=== PATIENT | female | born 1955 | race Caucasian/White ===

== ENCOUNTER → 2016-11-22 | Outpatient (REF) | LOC: WSOH 11:07 | DX: Z02.89 Encounter for other administrative examinations (principal) ==

== ENCOUNTER → 2016-12-23 | Outpatient (REF) | LOC: WSOH 17:00 | DX: Z02.89 Encounter for other administrative examinations (principal) ==

== ENCOUNTER → 2018-07-25 | Outpatient (CLI) | payer OTHER | LOC: COL.RAD 08:10 | DX: S46.111A Strain of muscle, fascia and tendon of long head of biceps, right arm, initial encounter (principal); S56.511A Strain of other extensor muscle, fascia and tendon at forearm level, right arm, initial encounter; M75.111 Incomplete rotator cuff tear or rupture of right shoulder, not specified as traumatic; S43.491A Other sprain of right shoulder joint, initial encounter; Z98.890 Other specified postprocedural states ==

== ENCOUNTER 2018-07-26 13:26 | Outpatient (RCR) | payer OTHER ==
[2018-08-09] MEDS ORDERED: NORCO 325 MG-51 TAB PO (18:41)
[2018-08-14] MEDS ORDERED: NORCO 325 MG-51 TAB PO (16:51)
== END 2018-09-12 15:22 | disposition home or self-care (01) ==
LOC: WSOH 13:26
DX: S46.111A Strain of muscle, fascia and tendon of long head of biceps, right arm, initial encounter (principal); S56.511A Strain of other extensor muscle, fascia and tendon at forearm level, right arm, initial encounter; Y93.F2 Activity, caregiving, lifting; Y92.230 Patient room in hospital as the place of occurrence of the external cause; Y99.0 Civilian activity done for income or pay

== ENCOUNTER 2018-08-09 18:11 | Emergency (ER) | payer OTHER ==
[~2018-08-09] VITALS: Ht 172.7 cm; Wt 90.9 kg
[2018-08-09 18:20] VITALS: TEMP 99.3
[2018-08-09] MEDS ORDERED: NORCO 325 MG-51 TAB PO (18:41)
[2018-08-09 18:58] VITALS: BP 173/94; PULSE 80
== END 2018-08-09 19:01 | disposition home or self-care (01) ==
LOC: COL.ER 18:11
DX: S46.011D Strain of muscle(s) and tendon(s) of the rotator cuff of right shoulder, subsequent encounter (principal); F43.10 Post-traumatic stress disorder, unspecified; Z88.5 Allergy status to narcotic agent

== ENCOUNTER 2018-08-14 15:17 | Emergency (ER) | payer OTHER ==
[~2018-08-14] VITALS: Ht 172.7 cm; Wt 90.9 kg
[~2018-08-14 15:17] MED LIST: NORCO 325 MG-51 TAB PO
[2018-08-14 15:24] VITALS: TEMP 99
[2018-08-14] MEDS ORDERED: NORCO 325 MG-51 TAB PO (16:51)
[2018-08-14 17:05] VITALS: BP 183/101; PULSE 77
== END 2018-08-14 17:33 | disposition home or self-care (01) ==
LOC: COL.ER 15:17
DX: S43.431A Superior glenoid labrum lesion of right shoulder, initial encounter (principal); M75.101 Unspecified rotator cuff tear or rupture of right shoulder, not specified as traumatic; X50.0XXA Overexertion from strenuous movement or load, initial encounter

== ENCOUNTER 2018-10-10 18:10 | Emergency (ER) | payer OTHER ==
[~2018-10-10] VITALS: Ht 172.7 cm; Wt 90.9 kg
[2018-10-10 18:18] VITALS: BP 184/123; TEMP 98.9
[2018-10-10] MEDS ORDERED: NORCO 325 MG-51 TAB PO (19:40)
[2018-10-10 20:08] VITALS: PULSE 78
== END 2018-10-10 20:32 | disposition home or self-care (01) ==
LOC: COL.ER 18:10
DX: M75.101 Unspecified rotator cuff tear or rupture of right shoulder, not specified as traumatic (principal); I10 Essential (primary) hypertension; F43.10 Post-traumatic stress disorder, unspecified; X58.XXXA Exposure to other specified factors, initial encounter; Y92.009 Unspecified place in unspecified non-institutional (private) residence as the place of occurrence of the external cause

== ENCOUNTER 2018-11-06 19:04 | Emergency (ER) | payer OTHER ==
[~2018-11-06] VITALS: Ht 172.7 cm; Wt 92.7 kg
[2018-11-06 19:09] VITALS: TEMP 97.3
[2018-11-06 20:06] VITALS: BP 178/109; PULSE 75
== END 2018-11-06 20:27 | disposition home or self-care (01) ==
LOC: COL.ER 19:04
DX: M25.511 Pain in right shoulder (principal); I10 Essential (primary) hypertension; Z87.828 Personal history of other (healed) physical injury and trauma; X50.0XXA Overexertion from strenuous movement or load, initial encounter; Y92.59 Other trade areas as the place of occurrence of the external cause

== ENCOUNTER → 2018-11-30 | Outpatient (CLI) | payer OTHER ==
[2018-11-30 17:44] LABS: BASO # 0.1 (0.0-0.2); BASO % 0.9 % (0.0-2.0); EOS # 0.2 (0.0-0.7); EOS % 3.9 % (0-4.0); GRAN # 3.3 (1.4-6.5); GRAN % 55.8 % (42.2-75.2); HEMATOCRIT 46.8 % (37.0-47.0); HEMOGLOBIN 15.7 g/dl (12.5-16.0); LYMPH # 1.9 (1.2-3.4); LYMPH % 31.7 % (20.0-51.0); MEAN CELL VOLUME 88 fl (80.0-100.0); MEAN CORPUSCULAR HEMOGLOBIN 30 pg (27.0-31.0); MEAN CORPUSCULAR HGB CONC 34 g/dl (33.0-37.0); MEAN PLATELET VOLUME 9.2 fl (7.4-10.4); MONO # 0.4 (0.1-0.6); MONO % 7.5 % (1.7-9.3); PLATELET COUNT 296 K/mm3 (130-400); RED BLOOD COUNT 5.33 M/mm3 (4.10-5.30)
[2018-11-30 17:50] LABS: PROTHROMBIN TIME 11.4 SECONDS (9.7-12.8)
[2018-11-30 18:04] LABS: ALBUMIN 4.3 gm/dL (3.5-5.0); BILIRUBIN,TOTAL 0.6 mg/dL (0.0-1.0); CALCIUM 9.4 mg/dL (8.4-10.2); CREATININE, serum 0.8 (0.52-1.25); POTASSIUM 3.9 mmol/L (3.4-5.0); TOTAL PROTEIN 7.5 gm/dL (6.4-8.2)
[2018-11-30 18:08] LABS: ERYTHROCYTE SEDIMENTATION RATE 1 mm/hr (0-30)
== END ==
LOC: COL.RAD 16:26
PROVIDERS: Orthopaedic Surgery Sports Medicine
DX: Z01.812 Encounter for preprocedural laboratory examination (principal); M75.101 Unspecified rotator cuff tear or rupture of right shoulder, not specified as traumatic

== ENCOUNTER 2019-03-19 10:15 | Outpatient (RCR) | payer OTHER | END 2019-03-22 | disposition still patient (30) | LOC: WSPT | DX: F33.9 Major depressive disorder, recurrent, unspecified (principal); M75.21 Bicipital tendinitis, right shoulder; Z98.890 Other specified postprocedural states | CPT/HCPCS: G0283-GP ==

== ENCOUNTER 2019-06-11 10:15 | Outpatient (RCR) | payer OTHER | END 2019-07-26 | disposition home or self-care (01) | LOC: WSPT | DX: M75.21 Bicipital tendinitis, right shoulder (principal); Z98.890 Other specified postprocedural states ==

== ENCOUNTER 2019-07-23 13:45 | Outpatient (RCR) | payer OTHER | END 2019-08-08 | disposition home or self-care (01) | LOC: WSOT | DX: R22.31 Localized swelling, mass and lump, right upper limb (principal); M75.21 Bicipital tendinitis, right shoulder ==